=== PATIENT | female | born 1995 | race Caucasian/White ===

== ENCOUNTER 2018-06-02 10:05 | Emergency (ER) | payer OTHER ==
[2018-06-02] MEDS: DEXAMETHASONE 10 MG/ML 1 ML INJ IM (11:29)
[2018-06-02] MEDS: ALBUTEROL 0.5% (NEB) 2.5 MG/0.5 ML AMP NEB (11:33)
[2018-06-02] MEDS: IPRATROPIUM (NEB) 0.5 MG/2.5 ML AMP NEB (11:33)
== END 2018-06-02 13:25 | disposition home or self-care (01) ==
LOC: FTE 13:25
DX: J45.901 Unspecified asthma with (acute) exacerbation (principal)
CPT/HCPCS: 94644; 96372; 99284-25

== ENCOUNTER 2018-10-11 10:46 | Emergency (ER) | payer OTHER | END 2018-10-11 11:40 | disposition home or self-care (01) | LOC: FTE 10:46 | DX: J01.00 Acute maxillary sinusitis, unspecified (principal); J45.909 Unspecified asthma, uncomplicated | CPT/HCPCS: 99283; Z7502 ==